=== PATIENT | female | born 2000 ===

== ENCOUNTER 2020-08-19 19:13 | Emergency (ER) | payer SELFPAY ==
[~2020-08-19] VITALS: Ht 165.1 cm; Wt 91.0 kg
[2020-08-19 19:21] VITALS: BP 144/93
== END 2020-08-19 20:54 | disposition left against medical advice (07) ==
LOC: ED 19:45
DX: I95.9 Hypotension, unspecified (principal); Z53.21 Procedure and treatment not carried out due to patient leaving prior to being seen by health care provider